=== PATIENT | female | born 1940 | race Caucasian/White ===

== ENCOUNTER → 2017-12-06 | Outpatient (CLI) | payer MEDICARE, OTHER ==
[~2017-12-06] MED LIST: ALBUTEROL PO; ASPIRIN325 PO; B-122500 MCG SL; CALCIUM PO; CENTRUM SILVER1 EAC4 PO; GLUCOSAMINE CH1 EAC2 PO; MAGNESIUM OXID400 MG PO; MEDROLDOSEPACK PO; REQUIP 0.25 M0.25 MG PO; SYSTANE 0.3-0.1 EACH
== END ==
LOC: M.MRI 12:55
DX: M54.16 Radiculopathy, lumbar region (principal); M41.86 Other forms of scoliosis, lumbar region; M25.78 Osteophyte, vertebrae

== ENCOUNTER 2018-07-22 20:57 | Emergency (ER) | payer MEDICARE, OTHER ==
[~2018-07-22] VITALS: Ht 162.6 cm; Wt 85.1 kg
[2018-07-22] MEDS ORDERED: GABAPENTIN 100100 MG PO (21:18)
[2018-07-22] MEDS ORDERED: UNISOM50 MG PO (21:20)
[2018-07-22] MEDS ORDERED: [UNRECOGNIZED DRUG - OTHER] PO (21:21)
[2018-07-22 22:08] LABS: ABSOLUTE EOSINOPHILS 0.2 thou/uL (0.0-0.7); ABSOLUTE LYMPHOCYTES 1.3 thou/uL (0.8-5.3); ABSOLUTE MONOCYTES 0.4 thou/uL (0.0-1.2); ABSOLUTE NEUTROPHILS 4.2 thou/uL (1.6-8.1); BASOPHILS 0.7 %; EOSINOPHILS 2.7 %; HEMATOCRIT 37.2 % (37.0-47.0); HEMOGLOBIN 12.2 gm/dL (12.0-15.0); LYMPHOCYTES 21.2 %; MCH 27.8 pg (26.0-34.0); MCHC 32.8 g/dL (28.0-37.0); MCV 84.8 fL (80.0-100.0); MONOCYTES 6.3 %; MPV 9.3 fl. (7.2-11.1); NUCLEATED RBCS 0 /100WBC; PLATELET COUNT* 252 thou/uL (150-400); POLYS 69.1 %; RBC 4.39 mil/uL (4.20-5.00)
[2018-07-22 22:20] LABS: ANION GAP 6 mmol/L (7-16); BUN 23 mg/dL (7-18); CALCIUM 8.9 mg/dL (8.5-10.1); CHLORIDE 102 mmol/L (98-107); CO2 30 mmol/L (21-32); CREATININE 0.9 mg/dL (0.6-1.3); GLUCOSE 159 mg/dL (70-99); SODIUM 138 mmol/L (136-145); TROPONIN-I LEVEL <0.06 ng/mL (<0.06)
[2018-07-22 23:05] LABS: URINE BILIRUBIN NEGATIVE (Negative); URINE BLOOD 1+ (Negative); URINE CLARITY CLEAR; URINE COLOR YELLOW; URINE GLUCOSE-RANDOM NEGATIVE (Negative); URINE KETONES NEGATIVE (Negative); URINE LEUKOCYTES-REFLEX 1+ (Negative); URINE NITRITE-REFLEX NEGATIVE (Negative); URINE PROTEIN NEGATIVE (Negative); URINE UROBILINOGEN 0.2 E.U./dl (0.2-1.0)
[2018-07-22 23:39] LABS: CASTS None Seen /LPF (None Seen); MUCUS 0-3 Light strn/LPF (None Seen); SQUAMOUS >10 Many /LPF (0-3)
[2018-07-22 23:40] LABS: BACTERIA-REFLEX 1-9 Few /HPF (None Seen); CRYSTALS None Seen /LPF (None Seen); URINE RBC 3-10 Few /HPF (0-2); URINE WBC-REFLEX 6-15 Few /HPF (0-5)
[2018-07-22] MEDS ORDERED: BACTRIM DS TAB1 EACH PO (23:42)
[2018-07-22 23:54] VITALS: BP 141/72
--- NOTE | 2018-07-23 17:38 | EKG ---
[place] [address] ELECTROCARDIOGRAM REPORT Name: TANNER HUNTER Room: [facility]#: [id number] Admission: 07/22/18 Attend Phys: Discharge: 07/22/18 Date of : 36 Report #: [id number] THIS REPORT FOR: //name// [facility] ED Test Date: 2018-07-22 Test Time: 21:20:58 Pat Name: TANNER HUNTER Department: Room: Gender: F Metal Bonder: BELKIS : 1940 Requested By: Cher Chu Order Number: [id number] Candie MD: Vito Stern Measurements Intervals [place] Rate: 98 P: 48 CT: 161 QRS: -25 QRSD: 150 T: 5 QT: 393 QTc: 502 Interpretive Statements Sinus rhythm Right bundle branch block No previous ECG available for comparison Electronically Signed On 07-23-2018 17:38:29 CDT by Vito Stern [email or web address] <ELECTRONICALLY SIGNED> By: Vito Stern MD, [facility] 07/23/18 1738 2120 19 Vito Stern MD, FACC /EPI
== END 2018-07-22 23:54 | disposition home or self-care (01) ==
LOC: M.ERS 20:57
PROVIDERS: Emergency Medicine
DX: T42.6X1A Poisoning by other antiepileptic and sedative-hypnotic drugs, accidental (unintentional), initial encounter (principal); N39.0 Urinary tract infection, site not specified; Z88.6 Allergy status to analgesic agent; Z88.8 Allergy status to other drugs, medicaments and biological substances; Z90.89 Acquired absence of other organs; Y92.89 Other specified places as the place of occurrence of the external cause

== ENCOUNTER → 2018-10-11 | Outpatient (CLI) | payer MEDICARE, OTHER ==
[~2018-10-11] MED LIST changes: +BACTRIM DS TAB1 EACH PO; +GABAPENTIN 100100 MG PO; +UNISOM50 MG PO; +[UNRECOGNIZED DRUG - OTHER] PO
== END ==
LOC: M.MRI 17:05
DX: M51.16 Intervertebral disc disorders with radiculopathy, lumbar region (principal); M47.26 Other spondylosis with radiculopathy, lumbar region; N83.292 Other ovarian cyst, left side

== ENCOUNTER 2018-10-18 20:06 | Emergency (ER) | payer MEDICARE, OTHER ==
[~2018-10-18] VITALS: Ht 162.6 cm; Wt 81.7 kg
[2018-10-18 20:14] VITALS: BP 117/91
[2018-10-18] MEDS ORDERED: METHYLPREDNISOLO4 MG (20:22)
[2018-10-18] MEDS ORDERED: CYCLOBENZAPRINE5 MG (20:23)
[2018-10-18] MEDS ORDERED: NORCO 5-325 TA1 EAC1 PO (21:05)
== END 2018-10-18 21:54 | disposition home or self-care (01) ==
LOC: M.ERS 20:06
DX: M65.262 Calcific tendinitis, left lower leg (principal); Z88.6 Allergy status to analgesic agent; Z88.8 Allergy status to other drugs, medicaments and biological substances; Z90.89 Acquired absence of other organs

== ENCOUNTER → 2018-10-21 | Outpatient (CLI) | payer MEDICARE, OTHER ==
[~2018-10-21] MED LIST changes: +CYCLOBENZAPRINE5 MG; +METHYLPREDNISOLO4 MG; +NORCO 5-325 TA1 EAC1 PO
== END ==
LOC: M.ULTRA 10:45
DX: N83.202 Unspecified ovarian cyst, left side (principal); N83.201 Unspecified ovarian cyst, right side; R93.89 Abnormal findings on diagnostic imaging of other specified body structures; Z78.0 Asymptomatic menopausal state